=== PATIENT | male | born 2000 | race Two or more races ===

== ENCOUNTER 2021-11-26 21:00 | Emergency (ER) | payer OTHER ==
[~2021-11-26] VITALS: Ht 165.1 cm; Wt 63.5 kg
[2021-11-26 22:25] VITALS: BP 120/76
[2021-11-26] MEDS ORDERED: HYDROcodone/acetaminophen 10/325mg tab PO ONE (23:10)
[2021-11-26] MEDS ORDERED: HYDR-3965 PO (23:31)
== END 2021-11-26 23:55 | disposition home or self-care (01) ==
LOC: ER 21:03
DX: S62.001A Unspecified fracture of navicular [scaphoid] bone of right wrist, initial encounter for closed fracture (principal); M25.531 Pain in right wrist; Z79.899 Other long term (current) drug therapy; W19.XXXA Unspecified fall, initial encounter; Y93.89 Activity, other specified; Y92.89 Other specified places as the place of occurrence of the external cause; Y99.8 Other external cause status
CPT/HCPCS: 29125; 73110; 73130; 99284